=== PATIENT | female | born 1945 | race Caucasian/White ===

== ENCOUNTER 2022-11-10 06:30 | Day surgery (SDC) | payer OTHER, SELFPAY ==
[2022-11-05 08:38] VITALS: BMI 31.6
[2022-11-10] VITALS (16 sets, daily range): BP systolic 92–172; BP diastolic 44–81; PULSE 64–86; RESP 12–27; TEMP 35.7–36.4; O2SAT 91–99; BMI 31.6
--- NOTE | 2022-11-10 06:00 | DI.RAD.S_ITS ---
PROCEDURE: XR PELVIS 1-2V INDICATIONS: INNER OP TECHNIQUE: Intra-operative view of the pelvis and hip acquired. COMPARISON: [facility], JAMES, PELVIS 1 OR 2 VIEWS, 07/30/2016, 11:47. [facility], JAMES, XR PELVIS WITH LATERAL HIP RIGHT, 06/18/2022, 10:36. FINDINGS: Bones: Intraoperative devices prior to placement of right hip arthroplasty prostheses are in expected positions. No fractures or suspicious bony lesions. Left hip arthroplasty is stable. Soft tissues: Overlying surgical retractors are present, along with other intraoperative changes. IMPRESSION: Intraoperative right hip arthroplasty. Dictated by: Marlene Andres M.D. on 11/10/2022 at 14:01 Approved by: Marlene Andres M.D. on 11/10/2022 at 14:02
[2022-11-10] MEDS: ACETAMINOPHEN 325 MG TABLET 975 MG PO (06:48)
[2022-11-10] MEDS: CELECOXIB 200 MG CAPSULE PO (06:48)
[2022-11-10] MEDS: LACTATED RINGERS 1,000 ML 42 ML IV ×2 (07:04→10:17)
[2022-11-10] MEDS: VANCOMYCIN 1,000 MG/200 ML PIGGYBACK 200 MG IV (07:04)
--- NOTE | 2022-11-10 07:34 | PM.PREOP ---
Pre-operative Note Interval Note History & Physical reviewed/Exam performed by Physician: Yes Changes to H&P: No
--- NOTE | 2022-11-10 07:35 | PM.OP.1 ---
Operative Date/Time/Diagnoses Date of procedure: 11/10/22 Time of procedure: 08:00 Pre-op diagnosis: Severe right hip OA Post-op diagnosis: same Procedure & Clinicians Procedure: Right total hip arthroplasty posterior approach Same procedure as scheduled: Yes Indications: The patient has had progressively worsening right hip pain with radiographic changes consistent with arthritis. Non-operative management has failed and the patient has requested total hip replacement. The risks, benefits and alternatives to surgery were discussed with the patient prior to proceeding. Risks discussed included, but were not limited to, failure to relieve pain, leg length discrepancy, dislocation, stiffness, infection, nerve damage, deep venous thrombosis, pulmonary embolism, stroke, coma, heart attack, permanent paralysis and , as well as the potential need for eventual revision of the prosthetic. Surgeon: Pattie Garcia Global Marketing Operations Manager: Calos Fried Anesthesia Type: General and Spinal Operative Notes Closure Type: primary Specimen(s): none sent Estimated Blood Loss (mL): 250 Blood products transfused: none Procedure in detail: The patient was seen in the pre-operative area, where the patient identified the right hip as the operative site and this was marked with my initials. The patient received pre-operative antibiotics and was taken to the operating room and placed on the operative table in the left lateral decubitus position after satisfactory anesthesia. A multimedia designer out was performed. The right leg was prepared from the ankle to the iliac crest with ChloroPrep in the usual fashion and draped through sterile drapes. The hip was approached through an approximately 20 cm incision centered over the greater trochanter and curving gently posteriorly as it went proximally. This was carried sharply to the fascia parvin, which was divided and retracted with a self retaining retractor. The trochanteric bursa was excised with care being taken to avoid the sciatic nerve, which was identified and protected throughout the case. The short external rotators were incised and the capsulomuscular flap was raised and tagged for later repair. The hip was dislocated, and a femoral neck osteotomy performed approximately 15 mm above the lesser trochanter. A PA was used throughout the procedure and was critical for retraction, intraoperative leg positioning and adequate visualization for hemostasis. The patient had slight tendency towards bleeding but excellent hemostasis was achieved. Retractors were placed around the femur. The canal was opened with a box cutting osteotome, followed by a T handled reamer and a lateralizing reamer. The chili pepper broach was then used, followed by sequential broaching until there was good stability of the broach in the femur. Retractors were placed to expose the acetabulum. The labrum and central soft tissues were removed. Reaming was performed initially going up in 2 mm increments, then 1 mm increments until good bite was obtained with an odd sized reamer. The cup 1 mm larger than the last reamer was then inserted using the appropriate anteversion guides. It was further stabilized with a single screw. A trial neutral liner was placed. The broach was placed in the canal. A trial head and neck were then placed and the hip relocated and checked for leg length and stability. An intraoperative film confirmed the component position and no evidence of fracture. The patient was stable in the position of sleep, of squatting, and could be put through a range of motion with 45 degrees internal rotation without dislocation. At 90 degrees flexion, internal rotation to 70? was possible before dislocation. This was felt to be satisfactory and the appropriate components were opened, and the trials were removed. The acetabular liner was impacted into position. The final stem was then impacted into the prepared femoral canal. A brief Betadine soak was performed while trialing with head options. The hip was meticulously irrigated with normal saline. Finally the femoral head was impacted onto the stem. The acetabulum was cleared of all material and the hip relocated one final time. The capsulomuscular flap was then repaired to the greater trochanter though an awl hole using the tag sutures. The short external rotators were repaired with a nonabsorbable suture. A deep drain was placed and brought out anteriorly. The fascia parvin was closed with Vicryl. The subcutaneous layer was closed with barbed sutures and skin cordell. A jesse Dressing was applied and the patient was taken to recovery having tolerated the procedure well. Complications: none Post-operative Condition: stable Disposition: Acute Care Plan for aftercare: The patient will be maintained on a standard total hip replacement protocol with weight bearing as tolerated and posterior hip precautions. The patient will receive Aspirin and sequential compression devices for DVT prophylaxis. The patient will be discharged home when safe for the home environment.
[2022-11-10] MEDS: CEFAZOLIN 2 GM/100 ML PREMIX 100 ML IV ×3 (08:15→23:21)
--- NOTE | 2022-11-10 08:32 | SUR.OPER ---
Lateral on padded OR bed. Gel axillary roll. Arms secured on padded armboard with pillow supporting top arm. Padded hip positioner braces x4 - anterior and posterior chest and pelvis. Additional gel pad used anterior pelvis. Gel pad under bottom leg from knee to foot and secured with tape over sheet.
[2022-11-10] MEDS: TRANEXAMIC ACID 1,000 MG VIAL 2000 MG INJ ×2 (08:37→10:03)
[2022-11-10] MEDS: BUPIVACAINE 0.25% (PF) 60 ML, EPINEPHrine 0.3 MG INJ (08:39)
[2022-11-10] MEDS: BUPIVACAINE LIPOSOME 266 MG/20 ML VIAL INJ (10:04)
--- NOTE | 2022-11-10 10:30 | DI.RAD.S_ITS ---
PROCEDURE: XR HIP W PEL IF DONE RT 2V INDICATIONS: POST OP RT HIP TECHNIQUE: 2 view(s) of the hip acquired. COMPARISON: [facility], CR, [id number] W PEL IF PERFORMED, 07/30/2016, 12:43. FINDINGS: Bones: Patient is status post right hip arthroplasty, with hardware components in expected positions. The hip joint appears congruent. The visualized bony structures appear intact. Soft tissues: Overlying postoperative changes are noted. No suspicious soft tissue densities. IMPRESSION: Expected postoperative appearance of the right total hip arthroplasty. Dictated by: Patrick Sandhu M.D. on 11/10/2022 at 13:03 Approved by: Patrick Sandhu M.D. on 11/10/2022 at 13:04
[2022-11-10] MEDS: LACTATED RINGERS 1,000 ML 100 ML IV ×2 (11:00→17:26)
--- NOTE | 2022-11-10 13:45 | PT.IIE ---
Current Diagnoses Pain in right hip (11/10/22) Surgery Performed Operation Date: 11/10/22 07:45 Actual Procedures p Total Hip Arthroplasty(Right) - Pattie Garcia MD Surgical History (Last Updated 11/05/22 @ 09:09 by Corry Dsouza RN) History of total left hip replacement (07/30/16) History of total left knee replacement History of total right knee replacement Hx of bilateral breast biopsy Hx of bilateral cataract extraction Hx of eye surgery Medical History (Last Updated 11/05/22 @ 09:14 by Corry Dsouza RN) Anesthesia complication History of COVID-19 (2021) HLD (hyperlipidemia) HTN (hypertension) Physical Therapy Inpatient Evaluation/Re-Eval M1 PT/OT-IP Prior Functional Status Start: 11/10/22 14:57 Freq: NEEDED Status: Active Protocol: Document 11/10/22 13:45 AB (Rec: 11/10/22 15:09 AB [facility] Medical Review Prior Functional Status Medical History Reviewed Yes Communication able to make needs known Mobility and Gait pt stated that she is independent with all mobilities and ambulation without AD Social History Household Members spouse Living Arrangements House Number of Floors (Floors) One Floor Number of Stairs To Enter/Railing? 9 steps R rail ascending to enter the house Home Environment Walk in Shower,Built-In Shower Seat Home Equipment Front Wheel Walker,Straight Cane,Raised Toilet Seat w/ Armrests,Hand Held Shower,Grab Bars In Shower M2 PT-IP Current Condition Start: 11/10/22 14:57 Freq: NEEDED Status: Active Protocol: Document 11/10/22 13:45 AB (Rec: 11/10/22 15:09 AB [email or web address]) Physical Therapy Current Condition Current Condition Evaluation Date 11/10/22 Treatment Diagnosis s/p R CORINNE posterior approach; difficulty in walking Onset Date 11/10/22 M3 PT-IP Subjective Start: 11/10/22 14:57 Freq: NEEDED Status: Active Protocol: Document 11/10/22 13:45 AB (Rec: 11/10/22 15:09 AB [id number]) Subjective Physical Therapy Visit Type Type Initial Evaluation Visit Start Time 13:45 Visit Stop Time 14:50 Total Visit Minutes 55 Number of COW TESTER Visits 0 Physical Therapy Visit Comments Patient Comments agreeable to do PT; requesting to use the toilet Therapy Pain Assessment Pain When Pain Assessed At Rest Pain Present Pain Present Pain Reported Location Right Hip Intensity 5 Scale Used Numeric (0 - 10) Pain Management Techniques Apply Cold,Distraction, Modification of Treatment,Re- positioning,Timing of Activity with Medications M4 PT-IP Mobility and Gait Start: 11/10/22 14:57 Freq: NEEDED Status: Active Protocol: Document 11/10/22 13:45 AB (Rec: 11/10/22 15:09 AB [email or web address]) PT-Bed Mobility Assessment Supine to Sit Supine to Sit Standby Assistance Sit to Supine Sit to Supine Standby Assistance PT-Transfer Assessment Sit to and From Stand Sit to and from Stand Contact Guard Assistance, Minimal Assistance,1 Person Assistance,Use of Upper Extremities Equipment Transfer Assistive Device Gait Belt,Front Wheeled Walker Orthotic/Prosthetic Devices or Brace: No Transfers Transfer Destination Bed,Toilet Transfer Technique ambulated Transfer Ability Level of Assist Standby Assistance,Contact Guard Assistance,1 Person Assistance,Use of Upper Extremities Comments Mobility Comments educated pt regarding posterior hip precautions. pt requires cues to recall. BP in supine: 154/73. completed supine to sit SBA. able to sit on EOB SBA. completed sit to stand min A and cues for techniques. repeated again and only needing CGA. ambulated to the toilet ~25 ft using FWW CGA. presents with slow paced antalgic gait. required cues for precautions and needs assist with brief management. completed si<>stand from the toilet using grab bar CGA to min A and cues. ambulated to the chair using FWW CGA. provided pt with post-op handout and set up caregiver training. pt requested to go back to bed . completed sit to stand from the chair CGA and ambulated to the EOB ~ 12 ft using FWW SBA . completed sit to supine SBA and cues for techniques. positioned pt on the bed. call light and table placed within reach. Gait Assessment Gait Gait Assistance Required: Standby Assistance,Contact Guard Assist,1 Person Assist Distance (Feet) 25 Able to Maintain Weight Bearing Status Yes During Gait Assistive Devices Assistive Device Gait Belt,Front Wheeled Walker Orthotic/Prosthetic Devices or Brace: No Gait Deviations General Gait Pattern Antalgic,Decreased Stride Length,Decreased Feet Clearance,Step-to Gait Factors Limiting Gait Function Factors Limiting Gait Function Decreased Activity Tolerance, Decreased Strength,Difficulty Following Directions,Limited Range of Motion,Pain,Poor Balance,Poor Safety Awareness PT-Balance Assessment Sitting Balance and Reactions Static Sitting Balance Ability Normal Dynamic Sitting Balance Ability Good Standing Balance and Reactions Static Standing Balance Ability Fair Dynamic Standing Balance Ability Fair Device Used FWW M5 PT-IP Objective Assessments Start: 11/10/22 14:57 Freq: NEEDED Status: Active Protocol: Document 11/10/22 13:45 AB (Rec: 11/10/22 15:09 AB [email or web address]) Orientation Orientation/Cognition Level of Alertness Alert Orientation Name,Place,Situation Language Function Ability No Deficits Noted Safety Awareness Decreased Safety Awareness Memory Description Short Term Impaired Gross Range of Motion Lower Extremity ROM Assessment Within Functional Limits Strength Lower Extremity Strength Assessment Within Functional Limits Sensation Assessment Sensation Gross Sensation WNL Muscle Tone Muscle Tone WNL Yes M6 PT-IP Treatment Start: 11/10/22 14:57 Freq: NEEDED Status: Active Protocol: Document 11/10/22 13:45 AB (Rec: 11/10/22 15:09 AB [email or web address]) Physical Therapy Treatment Education Education Provided Precautions,Weight Bearing Status,Post-Op Packet,Safety M7 PT-IP Assessment and Plan Start: 11/10/22 14:57 Freq: NEEDED Status: Active Protocol: Document 11/10/22 13:45 AB (Rec: 11/10/22 15:09 AB [email or web address]) PT Summary Assessment and Plan Potential Rehabilitation Potential Good Status of Condition at Evaluation Stable Summary Impairments Pain,ROM,Strength,Balance, Coordination,Bed Mobility, Transfers,Gait,Activity Tolerance Assessment Summary pt s/p R CORINNE posterior approach POD 0. pt requiring SBA to CGA with mobility using FWW but requires cues for hip precautions. caregiver training set up for tomorrow at 9 am. pt stated that she does not have outpt PT set up since no clinic will accept her insurance where she lives. Recommending HHPT at this time. will continue to assess progress. pt also has to complete stair climbing training prior to d/c home. Goals Bed Mobility Goal Independent Transfer Goal Independent,Front Wheeled Walker Gait Goal Independent,Front Wheel Walker Gait Distance 200 Other Goals up/down 9 steps R rail SBA Days to Meet Goals 5 Frequency of Treatment Frequency Of Treatment Twice a Day Treatment Plan Physical Therapy Treatment Plan Bed Mobility Training,Transfer Training,Gait Training, Therapeutic Exercise,Balance Retraining,Post Op Education, Discharge Planning,Hot or Cold Pack,Neuromuscular Re-ed, Coordination Retraining,Manual Therapy Other Recommendations and Next Treatment caregiver training 11/11/22 @ [facility] 9 am Precautions Posterior Hip Precautions No Hip Flexion > 90 degrees,No Hip Internal Rotation,No Hip Adduction Weight Bearing Status Weight Bearing Status Weight Bear as Tolerated Allowed Weight Bearing Amount (enter % RLE WBAT or #) (%) Recommendations To Nursing Amount of Assist Needed 1 Person Assist Discharge Recommendations PT Discharge Recommendations Home with Assistance,Home Health Transportation Needs at Discharge Private Vehicle
[2022-11-10] MEDS: OXYCODONE IR 5 MG TABLET PO ×3 (13:47→21:09)
[2022-11-10] MEDS: IBUPROFEN 400 MG TABLET PO ×2 (15:04→21:07)
--- NOTE | 2022-11-10 15:51 | OT.IPNOTE ---
Attempted OT eval , pt just finished seeing PT. Pt states to work with OT tomorrow. Able to get prior level of care and started ADL suggestions for hip precaution needs. NO charge
[2022-11-10] MEDS: ACETAMINOPHEN 325 MG TABLET 650 MG PO ×2 (17:29→21:12)
[2022-11-10] MEDS: LOSARTAN 50 MG TABLET 100 MG PO (21:08)
[2022-11-10] MEDS: ATORVASTATIN 20 MG TABLET PO (21:09)
[2022-11-10] MEDS: DOCUSATE 100 MG CAPSULE PO (21:09)
[2022-11-10] MEDS: METOPROLOL ER 50 MG TABLET 100 MG PO (21:10)
[2022-11-10] MEDS: ASPIRIN EC 81 MG TABLET PO (21:10)
[2022-11-11 06:34] LABS: Hematocrit 36.2 % (36-46); Hemoglobin 12.2 g/dL (12.0-16.0)
--- NOTE | 2022-11-11 06:43 | PM.DS.1 ---
History of Present Illness History of Present Illness Date Patient Seen: 11/11/22 Time Patient Seen: 06:43 Chief complaint: Right Total Hip Arthroplasty 11/10 Narrative: Implants size 5 standard offset anthology, size 52 R3 cup, neutral poly liner, 36 by +0 cobalt femoral head,one 6.5 mm screw Operative Date/Time/Diagnoses Date of procedure: 11/10/22 Time of procedure: 08:00 Pre-op diagnosis: Severe right hip OA Post-op diagnosis: same Procedure & Clinicians Procedure: Right total hip arthroplasty posterior approach Same procedure as scheduled: Yes Indications: The patient has had progressively worsening right hip pain with radiographic changes consistent with arthritis. Non-operative management has failed and the patient has requested total hip replacement. The risks, benefits and alternatives to surgery were discussed with the patient prior to proceeding. Risks discussed included, but were not limited to, failure to relieve pain, leg length discrepancy, dislocation, stiffness, infection, nerve damage, deep venous thrombosis, pulmonary embolism, stroke, coma, heart attack, permanent paralysis and , as well as the potential need for eventual revision of the prosthetic. Surgeon: Pattie Garcia Clam Picker: Calos Fried Anesthesia Type: General and Spinal Operative Notes Closure Type: primary Specimen(s): none sent Estimated Blood Loss (mL): 250 Blood products transfused: none Discharge Providers Provider Discharge Date: 11/11/22 Primary care physician: Citlaly Borden DO Consults: 11/10/22 06:00 Consult to Anesthesiology Routine Comment: Consulting Provider: Anesthesiologist Reason for consultation: Regional block for post operative pain control 11/10/22 11:10 Consult to Discharge Planning Routine Comment: Consult to Occupational Therapy Evaluate & Treat Comment: Physician Instructions: Evaluate and treat Consult to Physical Therapy Evaluate & Treat Comment: Physician Instructions: post op CORINNE protocol Discharge provider: Johana Kruger PA-C Summary Hospital Course Discharge Diagnosis: Right hip osteoarthritis, s/p right total hip arthroplasty Hospital Course: Ms Johnston'shereen hospital course was unremarkable. On POD# 1 she was feeling well and wanted to go home. She was eating and voiding without difficulty and her pain was well-controlled with oral medication. She had been evaluated by PT and they felt she was appropriate for discharge home with family. Exam Vital Signs (past 8 hours): Oxygen Delivery Method Room Air Oxygen Flow Rate 0 Narrative Exam Narrative: 5/5 strength in hip flexors, quadriceps, hamstrings, DF, PF, EHL on right. Sensation to light touch intact throughout RLE. Calf soft, compressible, nontender and without palpable cords or masses. MONICA dressing functioning, CDI. Objective Labs 11/11/22 05:56 [facility] Medical History (Updated 11/05/22 @ 09:14 by Corry Dsouza RN) Anesthesia complication History of COVID-19 (2021) HLD (hyperlipidemia) HTN (hypertension) Surgical History (Updated 11/05/22 @ 09:09 by Corry Dsouza RN) History of total left hip replacement (07/30/16) History of total left knee replacement History of total right knee replacement Hx of bilateral breast biopsy Hx of bilateral cataract extraction Hx of eye surgery Social History household members: spouse Smoking Status: Former smoker alcohol intake: current Discharge Assessment & Plan Assessment and Plan Assessment: Right hip osteoarthritis, s/p right total hip arthroplasty Plan of Treatment: Discharge home, multimodal pain control, ASA BID x 6 weeks for VTE prophylaxis, outpt PT, f/u in office as scheduled in 2 weeks. Discharge Plan Discharge Plan Patient Disposition: Home Discharge orders & Medications Discharge Orders: Discharge (Order); Ordered 11/11/22 Ordered By: Johana Kruger Prescriptions: Continued metoprolol succinate 100 MG tablet extended release 24 hr 100 mg PO BEDTIME Qty: 0 ascorbic acid (vitamin C) 500 MG tablet 500 mg PO QDAY Qty: 0 latanoprost 0.005 % Drops 1 drp EYE-BOTH BEDTIME atorvastatin 20 mg Tablet 20 mg PO BEDTIME timolol maleate 0.25 % Drops 1 drp EYE-BOTH QAM hydrochlorothiazide 25 mg Tablet 25 mg PO DAILY losartan 100 mg Tablet 100 mg PO BEDTIME naproxen sodium 220 mg Tablet 220 mg PO DAILY PRN (Reason: Pain) Follow up/Referrals: Citlaly Borden DO [Primary Care Provider] - Pattie Garcia MD [Physician] - As previously scheduled (Follow up with Dr Garcia on 11/25/2022 @ 2:00 pm at [facility] office in [place].) Diet/Activity/Treatments Diet: Diet as Tolerated Activity: Weightbearing as tolerated to right leg. Posterior hip precautions. Cold/Heat Therapy: Ice to hip as needed for pain. Skin/Wound/Dressing Care Report to your healthcare provider any signs of infection, such as:: chills, fever, night sweats, unusual drainage and unusual redness Dressing: May shower with MONICA in place. Batteries will in 5-7 days, at which point you can detach or cut off the battery pack and dispose of it. Leave the MONICA dressing on until your follow up in office. Visit Report/Discharge Packet Instructions: DI for Hip Replacement Stand Alone Forms: Patient Portal/API, Surgery Discharge Discharge Data Primary Care Provider: Citlaly Borden Attending Provider: Pattie Garcia VTE Deep Vein Thrombosis/Pulmonary Embolism Present on Admission: No
[2022-11-11] MEDS: IBUPROFEN 400 MG TABLET PO (06:50)
[2022-11-11] MEDS: ACETAMINOPHEN 325 MG TABLET 650 MG PO (06:50)
[2022-11-11 08:00] VITALS: BP 142/48; PULSE 70; RESP 17; TEMP 36.3; O2SAT 96
--- NOTE | 2022-11-11 08:57 | OT.IP.EVAL ---
Current Diagnoses Pain in right hip (11/10/22) Surgery Performed Operation Date: 11/10/22 07:45 Actual Procedures p Total Hip Arthroplasty(Right) - Pattie Garcia MD Past Medical History (Last Updated 11/05/22 @ 09:14 by Corry Dsouza, RN) Anesthesia complication History of COVID-19 (2021) HLD (hyperlipidemia) HTN (hypertension) Surgical History (Last Updated 11/05/22 @ 09:09 by Corry Dsouza RN) History of total left hip replacement (07/30/16) History of total left knee replacement History of total right knee replacement Hx of bilateral breast biopsy Hx of bilateral cataract extraction Hx of eye surgery Occupational Therapy Inpatient Evaluation/Re-Eval M1 PT/OT-IP Prior Functional Status Start: 11/11/22 10:28 Freq: NEEDED Status: Active Protocol: Document 11/11/22 08:32 [facility] (Rec: 11/11/22 10:41 [facility] [id number]) Medical Review Prior Functional Status Medical History Reviewed Yes Communication able to make needs known Mobility and Gait pt stated that she is independent with all mobilities and ambulation without AD Activities of Daily Living and IADL's Pt states able to do on her own for ADL and IADl needs but had pain. Social History Household Members spouse Living Arrangements House Number of Floors (Floors) One Floor Number of Stairs To Enter/Railing? 9 steps R rail ascending to enter the house Home Environment Walk in Shower,Built-In Shower Seat Home Equipment Front Wheel Walker,Straight Cane,Raised Toilet Seat w/ Armrests,Hand Held Shower,Long Handled Shoe Horn,Nuclear Technologist, Sock Aid,Grab Bars In Shower M2 OT-IP Current Condition Start: 11/11/22 10:28 Freq: Status: Active Protocol: Document 11/11/22 08:32 [facility] (Rec: 11/11/22 10:41 [facility] [id number]) Occupational Therapy Current Condition Current Condition Evaluation Date 11/11/22 Treatment Diagnosis S/P R CORINNE Diagnosis Onset Date 11/10/22 Post Operative Precautions Posterior Hip Precautions No Hip Flexion > 90 degrees,No Hip Internal Rotation,No Hip Adduction M3 OT- IP Subjective and Pain Start: 11/11/22 10:28 Freq: Status: Active Protocol: Document 11/11/22 08:32 [facility] (Rec: 11/11/22 10:41 [facility] [id number]) OT- Subjective Occupational Therapy Visit Type Type Initial Evaluation Visit Start Time 08:25 Visit Stop Time 08:57 Total Visit Minutes 32 Occupational Therapy Visit Comments Patient Comments Pt agreed to get up and needing to use the bathroom. Patient/Caregiver Goals To go home. OT Pain Assessment Pain When Pain Assessed At Rest Pain Present Pain Present Pain Reported Location Right Hip Intensity 2 Scale Used Numeric (0 - 10) M4 OT- IP ADL's Start: 11/11/22 10:28 Freq: Status: Active Protocol: Document 11/11/22 08:32 [facility] (Rec: 11/11/22 10:41 [facility] [id number]) OT [id number] General Evaluation Self-Feeding Ability Independent OT ADL-Grooming General Evaluation Grooming Ability Independent Areas Needing Assistance Retrieving/Set-up of Grooming Items Comments OT Grooming Comments Able to do while standing at the sink with FWW. OT ADL-Oral Care General Eval Oral Care Ability Independent OT ADL-Dressing General Eval Lower Body Dressing Ability Standby Assistance Areas Needing Assistance Retrieving/Set-up of Clothing Comments OT Dressing Comments Pt able to use solutions developer and socks aid to do all LB dressing needs with good safety. OT ADL-Toileting General Evaluation Toileting Ability Contact Guard Assistance Areas Needing Assistance Manage Clothing Devices Toileting Assistive Devices Grab Bars Comments OT Toileting Comments Pt needing SBA while pulling up clothing over her hip. Pt agreed that she will be wearing briefs/pad at night and also looking into getting a toilet paper aid to assist with her hygiene needs. OT ADL-Bathing Comments OT Bathing Comments Pt able to sponge off at the edge of the bed and insisting to shower at home. M5 OT- IP IADL's Start: 11/11/22 10:28 Freq: Status: Active Protocol: Document 11/11/22 08:32 [facility] (Rec: 11/11/22 10:41 [facility] [id number]) OT-Instrumental Activities of Daily Living Deficits IADL Deficits Identified Deficits Home Safety Awareness Awareness of Need for Assistance at Home Good Awareness Ability to Problem Solve Emergency Able to Problem Solve Situations Home Safety Comments Pt has a supportive to assist with her needs. M6 OT- IP Functional Cognition Start: 11/11/22 10:28 Freq: Status: Active Protocol: Document 11/11/22 08:32 [facility] (Rec: 11/11/22 10:41 [facility] [id number]) Cognitive Factors Limiting Selfcare Function Cognitive Ability Level of Alertness Alert Patient Orientation Name,Place,Situation Attention Span Ability Capable of Focused Attention, Capable of Sustained Attention Ability to Follow Commands Able to Follow One Step Commands Cognitive Comments Cognitive Assessment Comments Pt intact and able to follow her hip precautions well during ADL and mobility. M7 OT- IP Mobility and Balance Start: 11/11/22 10:28 Freq: Status: Active Protocol: Document 11/11/22 08:32 [facility] (Rec: 11/11/22 10:41 [facility] [id number]) OT- Bed Mobility Assessment Supine to Sit Supine to Sit Assist Standby Assistance Scooting Scooting to Edge of Bed Standby Assistance OT-Transfer Assessment Sit to and From Stand Sit to and from Stand Standby Assistance Transfers Transfer Ability Standby Assistance Technique Transfer Destination Bed,Chair,Toilet Transfer Technique Stand Step Pivot Devices Transfer Assistive Devices Gait Belt,Front Wheeled Walker Comments Mobility Comments SBA for mobility needs. OT- Balance Assessment Sitting Balance and Reactions Static Sitting Balance Ability Normal Dynamic Sitting Balance Ability Good Standing Balance and Reactions Static Standing Balance Ability Good Dynamic Standing Balance Ability Fair M9 OT- IP Assessment and Plan Start: 11/11/22 10:28 Freq: Status: Active Protocol: Document 11/11/22 08:32 [facility] (Rec: 11/11/22 10:41 [facility] [id number]) OT Summary Assessment and Plan Potential Rehabilitation Potential Good Analytic Complexity at Evaluation Low Summary OT Impairments Pain,Balance,Functional Mobility,Bathing Progress Towards Goals Progressing Toward Goals Assessment Summary Pt doing well, low complexity and main barrier is pain. Pt has a supportive at home and is set-up well with all ADl equipment needs. Pt to go home when medically ready. Goals Grooming Goal Independent Dressing Goal Independent Toileting Goal Independent Bathing Goal Standby Assistance Toilet Transfer Goal Independent Shower Transfer Goal Independent Days to Meet Goals 5 Frequency of Treatment Frequency Of Treatment Once a Day Treatment Plan OT Treatment Plan ADL Training,Functional Mobility,Patient/Family Education,Discharge Planning Discharge Recommendations OT Discharge Recommendations Home with Assistance Transportation Needs at Discharge Private Vehicle
--- NOTE | 2022-11-11 09:00 | PT.IPTN ---
Current Diagnoses Pain in right hip (11/10/22) Surgery Performed Operation Date: 11/10/22 07:45 Actual Procedures p Total Hip Arthroplasty(Right) - Pattie Garcia MD Physical Therapy Treatment Note M2 PT-IP Current Condition Start: 11/10/22 14:57 Freq: NEEDED Status: Active Protocol: Document 11/10/22 13:45 [facility] (Rec: 11/10/22 15:09 [facility] [id number]) Physical Therapy Current Condition Current Condition Evaluation Date 11/10/22 Treatment Diagnosis s/p R CORINNE posterior approach; difficulty in walking Onset Date 11/10/22 M3 PT-IP Subjective Start: 11/10/22 14:57 Freq: NEEDED Status: Active Protocol: Document 11/11/22 10:34 TS (Rec: 11/11/22 10:51 TS [id number]) Subjective Physical Therapy Visit Type Type Treatment Note Visit Start Time 09:00 Visit Stop Time 09:23 Total Visit Minutes 23 Notes Caregiver training. Number of REMOTE ADVISOR Visits 1 Physical Therapy Visit Comments Patient Comments Pt found in room finishing with OT, reports she is feeling good, agreeable to PT. M4 PT-IP Mobility and Gait Start: 11/10/22 14:57 Freq: NEEDED Status: Active Protocol: Document 11/11/22 10:34 TS (Rec: 11/11/22 10:51 TS [id number]) PT-Transfer Assessment Sit to and From Stand Sit to and from Stand Standby Assistance,1 Person Assistance,Use of Upper Extremities Equipment Transfer Assistive Device Gait Belt,Front Wheeled Walker Orthotic/Prosthetic Devices or Brace: No Comments Mobility Comments Pt found resting in chair, agreeable to PT. Sit to stand x1 from chair SBA with FWW, good carryover of precautions and RLE extended. Pt ambulated in room/hallway SBA with FWW ~300', emerging step thru gait , no buckling or LOB. She performed stairs x9 ascending/ descending SBA w/BUE handrail, no LOB. Pt was left in room with spouse, preparing to d/c. Gait Assessment Gait Gait Assistance Required: Standby Assistance,1 Person Assist Distance (Feet) 300 Able to Maintain Weight Bearing Status Yes During Gait Assistive Devices Assistive Device Gait Belt,Front Wheeled Walker Orthotic/Prosthetic Devices or Brace: No Gait Deviations General Gait Pattern Antalgic,Decreased Stride Length,Decreased Feet Clearance,Step-to Gait Factors Limiting Gait Function Factors Limiting Gait Function Decreased Strength,Limited Range of Motion,Pain Comments Gait Comments See mobility. Stair Climbing Assessment Evaluation Level of Assist On Stairs Standby Assistance Devices Stair Climbing Assistive Devices Left Railing,Right Railing Technique/Endurance Stair Climbing Direction Ascend and Descend Stair Climbing Technique Step to Step Number of Steps Climbed 9 Comments Stair Climbing Comments See mobility comments. PT-Balance Assessment Sitting Balance and Reactions Static Sitting Balance Ability Normal Dynamic Sitting Balance Ability Good Standing Balance and Reactions Static Standing Balance Ability Good Dynamic Standing Balance Ability Fair Device Used FWW M5 PT-IP Objective Assessments Start: 11/10/22 14:57 Freq: NEEDED Status: Active Protocol: Document 11/10/22 13:45 AB (Rec: 11/10/22 15:09 AB [id number]) Orientation Orientation/Cognition Level of Alertness Alert Orientation Name,Place,Situation Language Function Ability No Deficits Noted Safety Awareness Decreased Safety Awareness Memory Description Short Term Impaired Gross Range of Motion Lower Extremity ROM Assessment Within Functional Limits Strength Lower Extremity Strength Assessment Within Functional Limits Sensation Assessment Sensation Gross Sensation WNL Muscle Tone Muscle Tone WNL Yes M6 PT-IP Treatment Start: 11/10/22 14:57 Freq: NEEDED Status: Active Protocol: Document 11/11/22 10:34 TS (Rec: 11/11/22 10:51 [id number]) Physical Therapy Treatment Education Education Provided Precautions,Weight Bearing Status,Post-Op Packet,Safety M7 PT-IP Assessment and Plan Start: 11/10/22 14:57 Freq: NEEDED Status: Active Protocol: Document 11/11/22 10:34 TS (Rec: 11/11/22 10:51 [id number]) PT Summary Assessment and Plan Potential Rehabilitation Potential Good Summary Impairments Pain,ROM,Strength,Balance, Coordination,Bed Mobility, Transfers,Gait,Activity Tolerance Assessment Summary Pt is progressing well with her mobility this session. She was SBA for sit to stands and ambulation. She progressed gait to ~300' with step thru antalgic gait. She performed stairs x9 SBA with BUE handrail assist, no buckling or LOB. PT recommends return home with spouse for assist and HHPT. Goals Bed Mobility Goal Independent Transfer Goal Independent,Front Wheeled Walker Gait Goal Independent,Front Wheel Walker Gait Distance 200 Other Goals up/down 9 steps R rail SBA Days to Meet Goals 5 Frequency of Treatment Frequency Of Treatment Twice a Day Treatment Plan Physical Therapy Treatment Plan Bed Mobility Training,Transfer Training,Gait Training, Therapeutic Exercise,Balance Retraining,Post Op Education, Discharge Planning,Hot or Cold Pack,Neuromuscular Re-ed, Coordination Retraining,Manual Therapy Precautions Posterior Hip Precautions No Hip Flexion > 90 degrees,No Hip Internal Rotation,No Hip Adduction Weight Bearing Status Weight Bearing Status Weight Bear as Tolerated Allowed Weight Bearing Amount (enter % RLE WBAT or #) (%) Recommendations To Nursing Amount of Assist Needed Standby Assistance,1 Person Assist Discharge Recommendations PT Discharge Recommendations Home with Assistance,Home Health Transportation Needs at Discharge Private Vehicle
[2022-11-11] MEDS: hydroCHLOROthiazide 25 MG TABLET PO (09:36)
[2022-11-11] MEDS: ASCORBIC ACID 500 MG TABLET PO (09:36)
[2022-11-11] MEDS: DOCUSATE 100 MG CAPSULE PO (09:37)
[2022-11-11] MEDS: ASPIRIN EC 81 MG TABLET PO (09:37)
--- NOTE | 2022-11-11 10:20 | CM.DANOTE ---
DCP: Case received, EMR reviewed. Attempted to see patient twice, the first time, O.T. was in the room, and there was more staff in the room. Patient already went home, but went ahead and completed DCP assessment based upon information currently available. Patient is a 77 year old female who admitted yesterday morning to the care of the orthopedic team. PCP: Dr. Borden. Payer: confirmed: [employer]age. Patient came to the hospital via private vehicle for a surgical procedure. Patient had right total hip arthroplasty. Patient has history of severe right hip osteoarthritis. Attempted to meet with patient a few times. The first time, O.T. was in the room, after that, other staff members were in the room, could see that patient was sitting up in the chair. Based upon information available, patient resides in [place] with spouse, Dl. Patient worked with therapy already, one assist. Spouse will assist patient when she goes home. P: Patient was discharged home today with spouse. Nicole Samano RN/Cooperative Education Director Discharge Planning/Care Management CM Discharge Assessment Start: 11/11/22 10:17 Freq: Status: Active Protocol: Document 11/11/22 10:17 (Rec: 11/11/22 10:19 [id number]) Discharge Planning Assessment Assigned Evp And Chief Operating Officer Nicole Samano RN/Cooperative Education Director Advance Directives? Yes Advance Directives on File Yes History Provided By Patient,Medical Record Prior Living Arrangements House Household Members spouse Type of transporation used prior to Drives own vehicle admit Independent with ADL's Yes Is patient alert and oriented? Yes Caregiver for Another No DME Already Rented / Owned FWW / Walker,Cane Patient/Family Preference OP PT Therapy Barriers to Discharge No Referrals Initiated None needed Whiteboard Updated in Patient Room with No name and ext. # of Evp And Chief Operating Officer Comment Attempted to meet with patient , but she already left Review Status In Process Next Review Type Continued Stay Review Pre-Anesthesia Assessment Start: 11/05/22 08:38 Freq: Status: Active Protocol: Document 11/05/22 08:38 [facility] (Rec: 11/05/22 09:22 [facility] [id number]) Pre-Anesthesia Assessment Preferred Name Domenica Patient Information Reviewed Via Phone Assessment Assessment Completed With Patient Diagnostic Results BMP/CMP,CBC,EKG,Urinalysis Comment Outside labs/EKG 09/15/22 scanned Primary Care Provider Cheyenne Koroma Seen Specialist in Last 12 Months Yes Specialist Seen Opthamologist/Senior Java Programmer Analyst, Orthopedist Primary Language Zimbabwean Multi Disciplined Language Analyst Required No Height 5 ft 3 in Weight 179 lb Body Mass Index (BMI) 31.6 Hearing Ability Normal Visual Impairment No Limitations Visual Assist Magnifying Glass Dentition Type Teeth, Natural Present Barriers to Learning None Hx Anesthesia Reactions Yes: PONV, pt advised she had episodes of apnea in recovery after knee surgery Hx Family Anesthesia Reaction No Hx Malignant Hyperthermia No Hx Blood Transfusions No Anesthesia Review Requested No Parts Department Supervisor No alcohol intake current alcohol intake frequency a few times a month Smoking Status Former smoker how long ago did patient quit smoking 1979 Substance Use Type does not use Pain Present Pain Reported Musculoskeletal Symptoms Abnormal Gait,Difficulty Walking,Joint Pain History of Falling (Recent or History of No ) Patient is completely paralyzed or No completely immobile Mental Status Oriented to own ability Is patient on oxygen? No Does patient have BABCOCK/SOB No Hx Sleep Apnea No Currently Taking a Beta Alysa Yes: Metoprolol Can You Climb a Flight of Stairs Without Yes SOB Hx Chest Pain No Hx SOB No Hx Syncope or Dizziness No Anti-Coagulant Therapy No Has a Commercial Assistant No Cardiac Testing No Hx Pacemaker/ICD No Pacemaker Rep Required? No Cardiac Clearance Received Not Applicable Diet Type At Home Regular Dysphagia No Gastrointestinal Symptoms None Bladder Pattern Incontinent Urinary Catheter Present No Hx Urinary Self Catheterization No Diabetes No HgbA1C 6.0 Date 09/15/22 Patient No Lactating No Hx Drug Resistant Organism No Presence of External or Internal Medical Yes: Left hip, bilat knee Devices prosthesis, uriah eye IOLs Received a COVID vaccine? Yes Received all doses? Yes Marital Status Lives With spouse Current Living Arrangements House Number of Floors (Floors) One Floor Number of Stairs To Enter/Railing? 8 Support System Spouse Does the Patient Have Assistance After Yes Surgery Patient Discharge Plan Description Return Home Comment Pt not advised on length of stay per surgeon Feels Safe in Current Environment Yes Been Physically Hurt or Threatened By a No Person in Current Environment Do you have thoughts of harming yourself None or others? Are you currently considering suicide? No Do you have a plan to hurt yourself or No Plan others? Do You Have Any Spiritual Beliefs That No May Affect Your HC Choices? Do You Have Any Cultural Practices That No May Affect Your HC Choices? Comment Chistian Who Can We Speak to About Patient's Care Family, friends Identifying Code for Release of Patient Declines to issue Information Health Care Proxy/Next of Kin Dl () Health Care Proxy Emergency Contact Name Dl () Emergency Contact Advance Directives? Yes Advance Directives on File Yes Power of Site Planner Yes Power of Site Planner Name Dl () Power of Site Planner PAC Instructions Do not shave/clip surgical site,Durable medical equipment ,Medications to take/avoid, Nasal antibiotic,No ETOH/ petroleum product on skin DOS, NPO,Post-op transportation,Pre -surgical wash,Sturdy shoes/ comfortable clothes,Do not bring valuables and remove jewelry
--- NOTE | 2022-11-11 10:39 | PC.NURSE ---
Pt is A&OX4, VSS, afebrile on RA. She reports pain to R hip tolerable with just ibuprofen and tylenol tolday. She denies pain while lyinging in bed. +CMS to R LE. MONICA drain/dressing intact, green light flashing. She is cleared for discharge home with today after day care home mother training with PT. She is ambulating well, voiding and has good po intake this a.m. Domenica verbalizes understanding of discharge instructions, site care, activity limitations,medications, monica dressing, as well as follow up appointment on 11/25/2022 with MD Garcia's office. She is escorted by w/ch to private vehicle with and all of her belongings at approximately 1000 am. today for discharge home.
== END 2022-11-11 10:00 | disposition home or self-care (01) ==
LOC: OR 06:32 → AC 06:36
PROVIDERS: Family Provider Family Medicine; PCP Family Medicine; Referring Provider Orthopaedic Surgery; Visit Provider Orthopaedic Surgery
PROC: 0SR90JZ Replacement of Right Hip Joint with Synthetic Substitute, Open Approach (ICD-10-PCS; CPT 27130; principal; 2022-11-10 07:45)
DX: M16.11 Unilateral primary osteoarthritis, right hip (principal); I10 Essential (primary) hypertension
CPT/HCPCS: 27130; 36415; 72170; 73502; 85014; 85018; 97116; 97161; 97165; 97530; 97535; C1776; C9290; J0171; J0690; J1100; J2250; J2405; J2704; J3010

== ENCOUNTER → 2025-04-17 14:02 | Outpatient (CLI) | payer MEDICARE, SELFPAY ==
[2022-11-10 06:39] VITALS: BMI 31.6
--- NOTE | 2025-04-17 14:05 | DI.US.S_ITS ---
PROCEDURE: US EXTREMITY NONVASC LOWER RT INDICATIONS: swelling; mass of right lower extremity TECHNIQUE: Real-time scanning was performed of the right lower extremity right posterior thigh approximately 10 cm superior to the popliteal fossa per notes , with image documentation. Five images. COMPARISON: None. FINDINGS: A nonspecific [id number] structure is noted in the subcutaneous tissues measuring up to approximately 5.6 by 1.9 x 1.0 cm may represent lipoma however other soft tissue masses not excluded. If indicated MRI may be useful for further evaluation if no intervention performed. IMPRESSION: Nonspecific 5.6 cm soft tissue mass as discussed above possible lipoma. Dictated by: Tevin Butts M.D. on 04/18/2025 at 20:35 Approved by: Tevin Butts M.D. on 04/18/2025 at 20:38
== END ==
LOC: US 14:04
PROVIDERS: Family Provider Family Medicine; PCP Family Medicine; Referring Provider Family Medicine
DX: R22.41 Localized swelling, mass and lump, right lower limb (principal)
CPT/HCPCS: 76882

== ENCOUNTER → 2025-05-24 10:34 | Outpatient (CLI) | payer MEDICARE, SELFPAY ==
[2022-11-10 06:39] VITALS: BMI 31.6
--- NOTE | 2025-05-24 10:37 | DI.MRI.S_ITS ---
PROCEDURE: MR LOWER LEG RT WO/W CON INDICATIONS: Mass of lower RT leg TECHNIQUE: Noncontrast coronal T1 spin echo and STIR, sagittal T1 spin echo with fat saturation and STIR, axial T1 spin echo and T2 fast spin echo with fat saturation. After the administration of contrast, axial/sagittal/coronal T1 spin echo with fat saturation through the right lower leg . COMPARISON: None. FINDINGS: Total knee arthroplasty which creates susceptibility artifact and partially obscures adjacent structures. Given this limitation the following is observed: No marrow placing osseous lesion. No fracture or bone marrow edema. Muscles and tendons are unremarkable. Nerves and vessels are unremarkable. Skin and subcutaneous fat is unremarkable. Specifically, no mass or fluid collection. No enhancing lesion. IMPRESSION: No mass. Dictated by: Martinez Miller M.D. on 05/24/2025 at 12:38 Approved by: Martinez Miller M.D. on 05/24/2025 at 12:44
== END ==
LOC: MRI 10:36
PROVIDERS: PCP Family Medicine
DX: R22.41 Localized swelling, mass and lump, right lower limb (principal); Z96.651 Presence of right artificial knee joint
CPT/HCPCS: 73720; A9579